=== PATIENT | male | born 1975 | race Caucasian/White ===

== ENCOUNTER 2016-05-04 16:18 | Emergency (ER) | payer OTHER ==
[~2016-05-04 16:18] MED LIST: ASPIRIN EC81 MG PO; NORCO 5-325 TA1 EACH PO; PROTONIX40 MG PO
== END 2016-05-04 18:32 | disposition home or self-care (01) ==
LOC: ER1 16:18
DX: J10.1 Influenza due to other identified influenza virus with other respiratory manifestations (principal)
CPT/HCPCS: 71020; 87081; 87880; 99283

== ENCOUNTER 2021-02-13 14:07 | Emergency (ER) | payer SELFPAY ==
[~2021-02-13 14:07] MED LIST changes: +ROBITUSSIN DM UD5 ML PO; +TESSALON PERLE100 MG PO
== END 2021-02-13 14:50 | disposition left against medical advice (07) ==
LOC: ER1 14:07
DX: Z53.21 Procedure and treatment not carried out due to patient leaving prior to being seen by health care provider (principal)